=== PATIENT | female | born 1995 | race Caucasian/White ===

== ENCOUNTER 2021-09-21 10:27 | Emergency (ER) | payer OTHER, SELFPAY ==
[2021-09-21 10:41] VITALS: BP 142/67; PULSE 82; RESP 16; TEMP 36.6; O2SAT 99
--- NOTE | 2021-09-21 11:55 | ED.SKABFB ---
HPI - Skin/Abscess/Foreign Bdy General Chief complaint: Skin/Abscess/Foreign Body Stated complaint: rash Source: patient and RN notes reviewed Mode of arrival: ambulatory History of Present Illness HPI narrative: This is a 26-year-old female who presented to urgent care a productive cough with greenish sputum that she has had for approximately 2 to 3 weeks. She also has a rash to her right temporal area near her eye that she has had for approximately 1 week she has been using alcohol and petroleum gel to the area. Patient has no other associated symptoms. The patient denies SOB, CP, palpitation, extremity numbness, lightheadedness, dizziness, constipation, diarrhea, chills, or fever. MD complaint: rash Related Data Allergies Allergy/AdvReac Type Severity Reaction Status Date / Time No Known Allergies Allergy Unverified 06/21/17 09:55 Review of Systems Review of Systems: A 14 organ system Review of Systems was performed and pertinent positives included in the HPI, otherwise remaining ROS is negative. [facility] Family History Family History (Updated 09/21/21 @ 11:57 by AVANI Terrell) Other Family history non-contributory Exam Narrative: GENERAL: This is a well-nourished, well-developed patient, in no apparent distress. HEAD: normocephalic, atraumatic. EYES: PERRL. Sclera clear/white. Vision is grossly intact. EARS: External ears normal, auditory canals clear and without drainage, TMs normal without perforation. Hearing grossly intact. NOSE: External nose normal with no obvious nasal discharge, nares without redness, no rhinorrhea. THROAT: Mucous membranes moist, posterior pharynx edematous with erythema. NECK: Neck supple, non-tender without lymphadenopathy, masses or thyromegaly. CARDIOVASCULAR: Regular rate and rhythm without murmurs, gallops, or rubs. RESPIRATORY: Clear to auscultation. Breath sounds equal bilaterally. No wheezes, rales, or rhonchi. GASTROINTESTINAL: Abdomen soft, non-tender, nondistended. Bowel sounds are active. No hepato-splenomegaly, or palpable masses. No guarding. SKIN: Rash to the right temporal area approximately dime size appears to be dry in nature NEURO: awake, alert, and oriented to person, place and time. There were no obvious focal neurologic abnormalities. Steady gait EXTREMITIES: Normal range of motion. No edema. No calf tenderness. Negative Homans sign bilaterally. BACK: Nontender without deformity or crepitance. No flank tenderness. Course Course Emergency Course: Patient will discharge with Augmentin in hydrocortisone Vital Signs Vital signs: Vital Signs Temperature 97.8 F 09/21/21 10:41 Pulse Rate 82 09/21/21 10:41 Respiratory Rate 16 09/21/21 10:41 Blood Pressure 142/67 H 09/21/21 10:41 Pulse Oximetry 99 09/21/21 10:41 Temperature 97.8 F 09/21/21 10:41 Pulse Rate 82 09/21/21 10:41 Respiratory Rate 16 09/21/21 10:41 Blood Pressure 142/67 H 09/21/21 10:41 Pulse Oximetry 99 09/21/21 10:41 MDM - Skin/Abscess/Foreign Bdy Differential Diagnosis Differential diagnosis: Likely cellulitis, contact dermatitis and other (Pharyngitis vs strep) Discharge Plan Discharge Clinical Impression: Contact dermatitis Qualifiers: Contact dermatitis type: unspecified Contact dermatitis trigger: other trigger Qualified Code(s): L25.8 - Unspecified contact dermatitis due to other agents Sinusitis Qualifiers: Sinusitis location: maxillary Chronicity: acute Recurrence: not specified as recurrent Qualified Code(s): J01.00 - Acute maxillary sinusitis, unspecified Patient Disposition: Home, Self-Care Condition: Stable Instructions: Antibiotic Form, Contact Dermatitis (DC), Sinusitis (ED) Additional Instructions: What are the symptoms of sinusitis? - Common symptoms of sinusitis include: ?Stuffy or blocked nose ?Thick yellow or green discharge from the nose ?Pain in the teeth ?Pain or pressure in the face - This often feels worse when a pe
== END 2021-09-21 11:56 | disposition home or self-care (01) ==
PROVIDERS: Emergency Provider Nurse Practitioner
DX: L25.8 Unspecified contact dermatitis due to other agents (principal); J01.00 Acute maxillary sinusitis, unspecified
CPT/HCPCS: 99213; G0463